=== PATIENT | female | born 1945 | race African-American/Black ===

== ENCOUNTER 2016-04-25 14:16 | Emergency (ER) | payer MEDICARE, MEDICAID ==
--- NOTE | 2016-04-25 14:28 | ER Document Report ---
Addendum entered and electronically signed by RUTH LEWIS NP 14:34: Doctor's Note Notes: 04/25/16 14:[address] Whitfield concerning mentation memory and confusion we'll order a head CT. Original Note: ED Medical Screen (RME) - General Stated Complaint: STOMACH PAIN Time seen by provider: 14:21 Mode of Arrival: Wheelchair Information source: Patient Notes: 70-year-old female presents to ED for abdominal pain off and on for couple weeks this time for couple days. Nausea for a couple weeks. She thinks she might have eaten some today but is not sure and does not know what it was. States she no she's at the hospital but does not know what the year is or the month. States she has a history of vertigo. Pupils dilated sluggish constriction to the left.. States she had decreased use of her left hand a couple days ago. I have greeted and performed a rapid initial assessment of this patient. A comprehensive ED assessment and evaluation of the patient, analysis of test results and completion of medical decision making process will be conducted by an additional ED providers. - Related Data Allergies/Adverse Reactions: codeine [Codeine] Allergy (Verified 12/05/11 14:49) Past Medical History - Past Medical History Cardiac Medical History: Reports: Hx Heart Attack, Hx Hypercholesterolemia, Hx Hypertension Neurological Medical History: Reports: Hx Seizures Endocrine Medical History: Reports: Hx Diabetes Mellitus Type 2 GI Medical History: Reports: Hx Gastroesophageal Reflux Disease Past Surgical History: Reports: Hx Abdominal Surgery - part of intestine removed , Hx Appendectomy, Hx Cholecystectomy, Hx Hysterectomy - Immunizations Hx Diphtheria, Pertussis, Tetanus Vaccination: No
[2016-04-25 14:31] VITALS: BP 108/82
[2016-04-25 15:17] LABS: ABSOLUTE LYMPHOCYTES (AUTO) 0.8 10^3/uL (0.5-4.7); ABSOLUTE MONOCYTES (AUTO) 0.3 10^3/uL (0.1-1.4); ABSOLUTE NEUT (AUTO) 5.6 10^3/uL (1.7-8.2); BASOPHILS % (AUTO) 0.3 % (0-2); EOSINOPHILS % (AUTO) 0.2 % (0-6); HEMOGLOBIN 12.8 g/dL (12.0-15.5); HGB HCT DIFFERENCE -1.6; LYMPHOCYTES % (AUTO) 11.8 % (13-45); MEAN CORPUSCULAR HEMOGLOBIN 30.5 pg (27.0-33.4); MEAN CORPUSCULAR HGB CONC 32.1 g/dL (32.0-36.0); MEAN CORPUSCULAR VOLUME 95 fl (80-97); RED BLOOD COUNT 4.21 10^6/uL (3.72-5.28); RED CELL DISTRIBUTION WIDTH 14.7 % (11.5-14.0); SEGMENTED NEUTROPHILS % (AUTO) 82.7 % (42-78); WHITE BLOOD COUNT 6.7 10^3/uL (4.0-10.5)
[2016-04-25 15:23] LABS: PARTIAL THROMBOPLASTIN TIME 27.7 SEC (23.5-35.8)
[2016-04-25 15:37] LABS: ALANINE AMINOTRANSFERASE 25 U/L (9-52); ALBUMIN 4.6 g/dL (3.5-5.0); ALKALINE PHOSPHATASE 136 U/L (38-126); ANION GAP 19 (5-19); ASPARTATE AMINO TRANSFERASE 48 U/L (14-36); BILIRUBIN,TOTAL 0.9 mg/dL (0.2-1.3); BLOOD UREA NITROGEN 17 mg/dL (7-20); CALCIUM 10.7 mg/dL (8.4-10.2); CARBON DIOXIDE 19 mmol/L (22-30); CHLORIDE 102 mmol/L (98-107); CREATINE KINASE 254 U/L (30-135); CREATININE RESULT 0.73 mg/dL (0.52-1.25); GLUCOSE 135 mg/dL (75-110); POTASSIUM 4.1 mmol/L (3.6-5.0); SODIUM 140.1 mmol/L (137-145); TOTAL PROTEIN 7.9 g/dL (6.3-8.2)
[2016-04-25 16:17] LABS: CREATINE KINASE MB 1.34 ng/mL (<4.55)
[2016-04-25 16:18] LABS: PROTHROMBIN TIME 13.5 SEC (11.4-15.4)
[2016-04-25 16:22] LABS: TROPONIN I < 0.012 ng/mL
[2016-04-25] MEDS ORDERED: NORMAL SALINE 1000 ML 1,000 ML IV ONE (16:36)
[2016-04-25] MEDS ORDERED: NORMAL SALINE 1000 ML 500 ML IV ONE (16:36)
[2016-04-25 16:57] LABS: LIPASE 93.9 U/L (23-300)
[2016-04-25 16:59] LABS: ALCOHOL < 10 mg/dL (NONE DETECTED)
[2016-04-25 18:07] LABS: APPEARANCE,URINE SLIGHTLY-CLOUDY; BILIRUBIN,URINE NEGATIVE (NEGATIVE); GLUCOSE, URINE NEGATIVE (NEGATIVE); KETONES,URINE 20 mg/dL (NEGATIVE); LEUKOCYTE ESTERASE,URINE LARGE (NEGATIVE); NITRITE,URINE NEGATIVE (NEGATIVE); PROTEIN,URINE 30 mg/dL (NEGATIVE)
[2016-04-25] MEDS ORDERED: CEFTRIAXONE 1 GM/D5W RTU 50 ML IV ONE (18:08)
[2016-04-25 18:21] LABS: URINE BARBITURATES SCREEN NEGATIVE; URINE METHADONE SCREEN NEGATIVE; URINE PHENCYCLIDINE SCREEN NEGATIVE
--- NOTE | 2016-04-25 20:00 | ER Document Report ---
ED General - General Chief Complaint: Abdominal Pain Stated Complaint: STOMACH PAIN Mode of Arrival: Wheelchair TRAVEL OUTSIDE OF THE [place] IN LAST 30 DAYS: No - HPI Patient complains to provider of: stomach pain Notes: Patient is coming in for altered mental status and stomach pain. Patient is confused in triage patient was dropped off by her "fianc. Upon reviewing the patient patient is alert and very interactive during her examination. Patient is unaware of the year and unaware of certain events. Patient has very tangential speech. Patient is a however PCP but does state that she's had abdominal pain upper abdominal pain for the last 2-3 days. No nausea no vomiting no diarrhea. Patient states was for Nabeel pain is probably related to her so use. Patient denies dysuria. - Related Data Allergies/Adverse Reactions: codeine [Codeine] Allergy (Verified 04/25/16 14:29) Past Medical History - General Information source: Patient Last Menstrual Period: hysterectomy - Social History Smoking Status: Never Smoker Cigarette use (# per day): No Chew tobacco use (# tins/day): No Frequency of alcohol use: None Drug Abuse: None Family History: None Patient has suicidal ideation: No Patient has homicidal ideation: No - Past Medical History Cardiac Medical History: Reports: Hx Heart Attack, Hx Hypercholesterolemia, Hx Hypertension Neurological Medical History: Reports: Hx Seizures Endocrine Medical History: Reports: Hx Diabetes Mellitus Type 2 Renal/ Medical History: Denies: Hx Peritoneal Dialysis GI Medical History: Reports: Hx Gastroesophageal Reflux Disease Past Surgical History: Reports: Hx Abdominal Surgery - part of intestine removed , Hx Appendectomy, Hx Section, Hx Cholecystectomy, Hx Hysterectomy - Immunizations Hx Diphtheria, Pertussis, Tetanus Vaccination: No Review of Systems - Review of Systems -: Yes ROS unobtainable due to patient's medical condition - Altered mental status Physical Exam - Vital signs Vitals: Temp Pulse Resp BP Pulse Ox 97.5 F 114 H 18 108/82 100 04/25/16 14:23 04/25/16 14:23 04/25/16 14:23 04/25/16 14:23 04/25/16 14:23 Interpretation: Normal - General General appearance: Appears well, Alert - HEENT Head: Normocephalic, Atraumatic Eyes: Normal Pupils: PERRL - Respiratory Respiratory status: No respiratory distress Chest status: Nontender Breath sounds: Normal Chest palpation: Normal - Cardiovascular Rhythm: Regular Heart sounds: Normal auscultation Murmur: No - Abdominal Inspection: Normal Distension: No distension Bowel sounds: Normal Tenderness: Tender - Diffuse tenderness to palpation moderate. No: McBurney's point, Franks's sign, Guarding, Rebound Organomegaly: No organomegaly - Back Back: Normal, Nontender - Extremities General upper extremity: Normal inspection, Nontender, Normal color, Normal ROM , Normal temperature General lower extremity: Normal inspection, Nontender, Normal color, Normal ROM , Normal temperature, Normal weight bearing. No: Bev's sign - Neurological Neuro grossly intact: Yes Cognition: Normal Orientation: Disoriented to person, Disoriented to time - Patient is unable to tell me the year. Patient's complete confused about my parents and does not remember seeing me in the room after multiple evaluations. Patient is also unable to her recall 3 objects at 1 minute [place] Coma Scale Eye Opening: Spontaneous [place] Coma Scale Verbal: Confused [place] Coma Scale Motor: Obeys Commands [place] Coma Scale Total: 14 Speech: Normal Motor strength normal: LUE, RUE, LLE, RLE Sensory: Normal - Psychological Associated symptoms: Normal affect, Normal mood - Skin Skin Temperature: Warm Skin Moisture: Dry Skin Color: Normal Course - Re-evaluation Re-evalutation: 04/25/16 23:16 Concern for possible abdominal pathology therefore CT oral and IV contrast was ordered. Patient was almost finished with her first bottle of oral contrast and stated that she would like to leave. Explained to the patient I am concerned that she is confused as that she cannot answer all my questions appropriately. Patient states that she will have her fianc, pick her up. During this time I was involved in a coated notified by nursing staff that the patient left our eloped from the ER. We did contact local law [facility] is also concern for the patient's well-being is that she does also have altered mental status. We did eventually find the patient will then our lobby. Patient was brought back and placed in examination room again explained to the patient that we would not allow her leave until family members came in and took custody of the patient. Patient refusing CT scan patient refusing antibiotics. Patient still confused a person identifies the patient's fianc did arrive in the ER. Explained that the patient is confused and that the patient has a urinary tract infection abdominal pain the need for further workup and possible risk of disability or if the workup was not completed. Maira states he likes speak to her son who also takes care of the patient. Nursing staff was able to control the patient's son states that the patient does not confused but she would like to leave on her own accord 8 he is okay with the filinda signing the patient out AGAINST MEDICAL ADVICE. Again reiterated patient should follow-up her primary care physician reiterated that the patient has an infection causing more likely her altered mental status and understate relate again that this is unsafe the patient to be discharged home again family member notified as to the fianc agree to sign paperwork signed prescription was given for UTI patient left on her own accord with her family members - Vital Signs Vital signs: Temp Pulse Resp BP Pulse Ox 97.5 F 114 H 18 108/82 100 04/25/16 14:23 04/25/16 14:23 04/25/16 14:23 04/25/16 14:23 04/25/16 17:46 - Laboratory Result Diagrams: 04/25/16 15:05 04/25/16 15:05 Laboratory results interpreted by me: 04/25/16 04/25/16 04/25/16 15:05 15:05 15:05 RDW 14.7 H Seg Neutrophils % 82.7 H Lymphocytes % 11.8 L Carbon Dioxide 19 L Glucose 135 H Calcium 10.7 H AST 48 H Alkaline Phosphatase 136 H Creatine Kinase 254 H Urine Protein Urine Ketones Urine Urobilinogen Ur Leukocyte Esterase Salicylates < 1.0 L Acetaminophen < 10 L 04/25/16 17:19 RDW Seg Neutrophils % Lymphocytes % Carbon Dioxide Glucose Calcium AST Alkaline Phosphatase Creatine Kinase Urine Protein 30 H Urine Ketones 20 H Urine Urobilinogen 2.0 H Ur Leukocyte Esterase LARGE H Salicylates Acetaminophen Discharge - Discharge Clinical Impression: Confusion Abdominal pain Qualifiers: Abdominal location: unspecified location Qualified Code(s): R10.9 - Unspecified abdominal pain Urinary tract infection Qualifiers: Urinary tract infection type: acute cystitis Hematuria presence: without hematuria Qualified Code(s): N30.00 - Acute cystitis without hematuria Condition: Good Disposition: AGAINST MEDICAL ADVICE Instructions: Urinary Tract Infection ([facility]), Abdominal Pain ([facility]), Altered Mental Status ([facility]) Additional Instructions: Follow-up with your primary care physician. Your urine shows signs of infection Examination day also reveals some confusion. Concern is that this is the infection is causing the confusion. I would recommend admission to the hospital however at this time you disagree. Otherwise her vital signs are normal. Your family member and guardian at bedside stating understanding that sign out against medical advise can result in certain disability and/or . I would highly recommend following up with your DrSurinder for further evaluation. He may take antibiotics as prescribed. Prescriptions: Cephalexin Monohydrate [Keflex 500 mg Capsule] 500 mg PO QID #20 capsule Referrals: ANNABELLA RUTLEDGE MD [Primary Care Provider] - Follow up tomorrow
--- NOTE | 2016-04-25 20:57 | EKG REPORT ---
SEVERITY:- ABNORMAL ECG - SINUS TACHYCARDIA BIATRIAL ABNORMALITIES MINIMAL ST DEPRESSION, DIFFUSE LEADS : Confirmed by: Don Arnett MD 25-Apr-2016 20:56:23
== END 2016-04-25 20:10 | disposition left against medical advice (07) ==
LOC: ER 14:16
DX: N30.00 Acute cystitis without hematuria (principal); R41.0 Disorientation, unspecified; R10.9 Unspecified abdominal pain
CPT/HCPCS: 36415; 70450; 71010; 80053; 80307; 81001; 82550; 82553; 83690; 84484; 85025; 85610; 85730; 93005; 93010; 99284